=== PATIENT | female | born 1955 | race Hispanic/Latino ===

== ENCOUNTER 2020-02-06 10:39 | Observation (INO) | payer MEDICARE ==
--- NOTE | 2020-02-02 09:16 | Anesthesia Consultation ---
Anesthesia Consult and Med Hx Date of service: 02/06/20 - Airway Anesthetic Teeth Evaluation: Dentures (upper and lower) ROM Head & Neck: Adequate Mental/Hyoid Distance: Adequate Mallampati Class: Class III Intubation Access Assessment: Possibly Difficult (small mouth opening) - Pulmonary Exam CTA: Yes - Cardiac Exam Cardiac Exam: RRR - Pre-Operative Health Status ASA Pre-Surgery Classification: ASA3 Proposed Anesthetic Plan: General - Pulmonary Hx Smoking: Yes (1 PPD) Hx Respiratory Symptoms: No COPD: Yes (albuterol prn; no prior hospitalizations) Home Oxygen Therapy: No Hx Sleep Apnea: No (RIO PRE SCREEN LOW RISK) - Cardiovascular System Hx Hypertension: Yes Hx Heart Attack/AMI: No Hx Percutaneous Transluminal Coronary Angioplasty (PTCA): No Hx Cardia Arrhythmia: No - Central Nervous System CVA: No Hx Back Pain: Yes (LOWER AND LT HIP PAIN) Hx Psychiatric Problems: No - Gastrointestinal Hx Gastroesophageal Reflux Disease: Yes (occasional) - Endocrine Hx Renal Disease: No (renal stones) Hx Liver Disease: No Hx Non-Insulin Dependent Diabetes: Yes Hx Thyroid Disease: No - Hematic Hx Anemia: Yes - Other Systems Hx Obesity: No - Additional Comments Anesthesia Medical History Comments: Hx high spinal with neuraxial anesthetic (unsure what surgical procedure). No other anesthetic complications. Scheduled for nephrostomy tube placement 02/03/20 at [facility].
[2020-02-02 09:18] LABS: Hematocrit 49.1 % (30.3-42.9); Hemoglobin 15.8 gm/dl (10.1-14.3); Mean Corpuscular HGB Conc 32 % (30-34); Mean Corpuscular Volume 82 fl (79-97); Platelet Count 195 K/mm3 (140-440); Red Blood Count 5.99 M/mm3 (3.65-5.03); Red Cell Distribution Width 14.4 % (13.2-15.2)
[2020-02-02 09:37] LABS: Alanine Aminotransferase 12 units/L (7-56); Albumin 3.9 g/dL (3.9-5); BUN/Creatinine Ratio 19; Blood Urea Nitrogen 15 mg/dL (7-17); Calcium 9.2 mg/dL (8.4-10.2); Hemolysis Index 12
--- NOTE | 2020-02-06 09:13 | Anesthesia Day of Surgery ---
Anesthesia Day of Surgery - Day of Surgery Patient Examined: Yes Patient H&P Reviewed: Yes Patient is NPO: Yes
[~2020-02-06 10:39] MED LIST: ACETAMINOPHEN 500 MG TAB PO NR; GABAPENTIN 300 MG CAP PO NR; HYDROmorphone 1 MG/1 ML INJ IV PRN; LACTATED RINGERS 1,000 ML IV SCH; MAGNESIUM OXIDE 400 MG TAB PO SCH; MIDAZOLAM 2 MG/2 ML INJ IV NR; SODIUM CHLORIDE 0.9% 500 ML 500 ML IV NR; ceFAZolin/STERILE WATER 2 GM/20 ML SYRINGE IV NR
[2020-02-06] MEDS ORDERED: dexAMETHasone 20 MG/5 ML VIAL ONE (10:40)
[2020-02-06] MEDS ORDERED: ONDANSETRON 4 MG/2 ML INJ ONE (10:40)
[2020-02-06] MEDS ORDERED: HYDROmorphone 1 MG/1 ML INJ ONE ×2 (10:40→11:54)
[2020-02-06] MEDS ORDERED: LIDOCAINE MPF (2%) 20 MG/1 ML VIAL 5 ML ONE (10:40)
[2020-02-06] MEDS ORDERED: propofoL 200 MG/20 ML VIAL IV ONE (10:40)
[2020-02-06] MEDS ORDERED: ROCURONIUM 50 MG/5 ML INJ IV ONE (10:40)
[2020-02-06] MEDS ORDERED: MINERAL OIL Light (Sterile) 10 ML VIAL TP ONE ×3 (10:49→13:08)
[2020-02-06] MEDS ORDERED: NEOSTIGMINE 10MG/10 ML INJ MDV ONE (11:00)
[2020-02-06] MEDS ORDERED: GLYCOPYRROLATE 0.4 MG/2 ML INJ ONE (11:00)
[2020-02-06] MEDS ORDERED: FUROSEMIDE 40 MG/4 ML INJ ONE (12:41)
[2020-02-06] MEDS ORDERED: SODIUM CHLORIDE 0.9% IRRIG SOLN 3000 ML IR ONE (13:10)
[2020-02-06] MEDS ORDERED: oxyCODONE /ACETAMINOPHEN 5-325MG TAB PO PRN (14:50)
[2020-02-06] MEDS ORDERED: ACETAMINOPHEN 325 MG TAB PO PRN (14:50)
[2020-02-06] MEDS ORDERED: NALOXONE 0.4 MG/1 ML INJ IV PRN (14:50)
[2020-02-06] MEDS ORDERED: ONDANSETRON 4 MG/2 ML INJ IV PRN (14:50)
--- NOTE | 2020-02-06 14:50 | Post Operative Note ---
Date of procedure: 02/06/20 Pre-op diagnosis: renal stones Post-op diagnosis: same Findings: large stones Procedure: left perc nephrolithotomy Anesthesia: GETA Surgeon: JAMEL MANZANARES Estimated blood loss: 50-100ml Pathology: list (stones to pt) Specimen disposition: to lab Condition: stable Disposition: PACU
--- NOTE | 2020-02-06 15:17 | Operative Report ---
PREOPERATIVE DIAGNOSIS: Huge stones in her left kidney with ureteropelvic junction obstruction from a stone. POSTOPERATIVE DIAGNOSIS: Huge stones in her left kidney with ureteropelvic junction obstruction from a stone. PROCEDURE: Left percutaneous nephrolithotomy. SURGEON: Dr. Toure. ANESTHESIA: General. FINDINGS: This is a woman with intermittent severe pain. She has large stone burden in left kidney. A nephroureteral stent was placed on Thursday. She now presents for treatment. All risks and implications discussed. DESCRIPTION OF PROCEDURE: The patient was brought to the operating room and placed on the operating table. Following the induction of anesthesia, placed in the prone position, prepped and draped in usual sterile fashion. Nephroureteral stent was disengaged and a rigid wire coiled in the bladder. This was backed out and using the Amplatz device, a snake was placed and the safety wire was placed and secured with a silk. At this point, we replaced the snake and dilated to approximately 24. We saw two large stones, which were the nonobstructing one; lower pole and mid pole and a UPJ stone. We used the balloon and then placed the sheath. We found out that there were no other sheaths to be used because the dilators came without the sheaths. So, we used the balloon and the sheath did go over the balloon without difficulty. There were a large number of clots in the renal pelvis, which were evacuated out and we saw the UPJ stone, which was easily extracted and a second stone easily extracted. The lower pole stone was difficult to access, but the mid stone was seen, was quite large and we were able to bring it at the level of the sheath. We started lasering it. It was very, very hard stone, did not break easily, so we tried to get the LithoClast. While waiting for the LithoClast, we tried to break it with the laser even while it was in the sheath. The LithoClast did not function properly. We could not use the LithoClast now. At this point, we went back to the laser and eventually cracked the stone in two. While we were waiting, there was some bleeding from that bianca I suspect and we just left the sheath intact until we can get visualization. Once we had visualization, we cracked the stone and the fragments; both stones were removed. The larger piece was removed with the sheath in total because it was stuck right at the level of the sheath. We still had the wire, so we were easily able to replace the sheath, but we had to use the same sheath because there were no other sheaths available. At this point, we placed a [place] catheter. There was some extravasation, so we wanted to be sure looking in the wire and went down the UPJ. We placed a double-J with trimming out with the loop from the kidney, so it would not loop anywhere outside the kidney and we also had a safety wire in the kidney, which we used to place the [place] catheter and left that intact; trimmed the wire at the level of the [place] catheter to allow this to heal. The patient tolerated the procedure well. The only time there was bleeding was when we were waiting for the LithoClast. We secured the [place] catheter without inflating the balloon to 2 silks, left the safety wire and left the double-J. She was brought to recovery room with most of her stone removed except for the lower pole one in stable condition. JOB# [id number] MARCE/MARCIAL
[2020-02-06 15:28] LABS: Hematocrit 47.5 % (30.3-42.9); Hemoglobin 15.9 gm/dl (10.1-14.3); Mean Corpuscular HGB Conc 33 % (30-34); Mean Corpuscular Volume 81 fl (79-97); Platelet Count 200 K/mm3 (140-440); Red Cell Distribution Width 14.5 % (13.2-15.2)
[2020-02-06 15:37] LABS: Calcium 8.8 mg/dL (8.4-10.2)
--- NOTE | 2020-02-06 15:46 | Fluoroscopy Report ---
INTRAOPERATIVE FLUOROSCOPY: STENT PLACEMENT INDICATION: LT KIDNEY STONE. TECHNIQUE: Intraoperative spot images were obtained during the procedure. FINDINGS: These images show balloon dilatation of the left renal collecting system with interval placement of l eft ureteral stent from a proximal approach. Please see procedure note for details. No unexpected fin dings. Fluoroscopy Time: 2 minutes, 7 seconds. Fluoroscopy Images: 12. Signer Name: Robson Ramos MD Signed: 02/06/2020 3:42 PM Workstation Name: [id number]
--- NOTE | 2020-02-06 16:00 | Post Anesthesia Evaluation ---
- Post Anesthesia Evaluation Patient Participated: Yes Airway Patent: Yes Stable Respiratory Function: Yes Nausea/Vomiting: No Temp > 96.8F: Yes Pain Manageable: Yes Adequeate Hydration: Yes Anesthesia Complications: No
[2020-02-06] MEDS: D5W/0.45% NACL/KCL 20 MEQ 20 MEQ/1,000 ML BAG IV SCH (18:14)
[2020-02-06] MEDS: ceFAZolin/NS 1 GM/50 ML 1 GM/50 ML BAG IV SCH (18:36)
[2020-02-06] MEDS: MORPHINE 2 MG/1 ML INJ IV PRN (20:38)
[2020-02-06] MEDS: DOCUSATE SODIUM 100 MG CAP PO SCH (21:38)
[2020-02-06] MEDS ORDERED: ZOLPIDEM 5 MG TAB PO PRN (22:00)
--- NOTE | 2020-02-06 22:27 | Consultation ---
History of Present Illness - Reason for Consult Consult date: 02/06/20 Medical management Requesting physician: JAMEL MANZANARES - History of Present Illness Patient had left percutaneous nephrolithotomy today. Postop patient is doing well. No complications. No shortness of breath. No fever. Past History Past Medical History: diabetes, hypertension Past Surgical History: Other (Left percutaneous nephrolithotomy for renal stones.) Medications and Allergies Allergies Allergy/AdvReac Type Severity Reaction Status Date / Time tetracycline AdvReac Severe Swelling Verified 01/30/20 15:21 aspirin AdvReac Intermediate Unknown Verified 01/30/20 15:21 meperidine [From Demerol] AdvReac Intermediate Unknown Verified 01/30/20 15:21 CONTRAST DYE AdvReac Severe Shortness Uncoded 01/30/20 15:21 of Breath Home Medications Medication Instructions Recorded Confirmed Last Taken Type Anoro Ellipta 62.5-25 Mcg INH 7.5 mg INHALATION DAILY 01/30/20 02/06/20 02/05/20 20:00 History Calcium Citrate/Vitamin D3 1 tab PO PRN 01/30/20 02/06/20 01/30/20 09:00 History Meloxicam [Mobic] 7.5 mg PO DAILY 01/30/20 02/06/20 01/30/20 09:00 History amLODIPine 5 mg PO DAILY 01/30/20 02/06/20 02/05/20 20:00 History lisinopriL [Zestril TAB] 40 mg PO DAILY 01/30/20 02/06/20 02/05/20 20:00 History metFORMIN 500 mg PO DAILY 01/30/20 02/06/20 02/05/20 20:00 History Active Meds: Active Medications Acetaminophen (Tylenol) 650 mg PO Q4H PRN PRN Reason: Pain MILD(1-3)/Fever >100.5/GUZMÁN Docusate Sodium (Colace) 100 mg PO BID SHAUNNA Last Admin: 02/06/20 21:38 Dose: 100 mg Documented by: Gabapentin (Gabapentin) 300 mg PO PREOP NR Stop: 02/06/20 23:00 Last Admin: 02/06/20 09:00 Dose: 300 mg Documented by: Lactated Ringer's (Lactated Ringers) 1,000 mls @ 100 mls/hr IV DIRECT SHAUNNA Stop: 02/06/20 23:59 Last Admin: 02/06/20 09:00 Dose: 100 mls/hr Documented by: Sodium Chloride (Nacl 0.9% 500 Ml) 500 mls @ 0 mls/hr IV ONCE NR Stop: 02/07/20 07:58 Cefazolin Sodium (Ancef/Ns 1 Gm/50 Ml) 1 gm in 50 mls @ 100 mls/hr IV Q8H SHAUNNA; Protocol Stop: 02/07/20 16:29 Last Admin: 02/06/20 18:36 Dose: 100 mls/hr Documented by: Potassium Chloride/Dextrose/Sod Cl (D5w/0.45% Nacl/Kcl 20 Meq) 20 meq in 1,000 mls @ 125 mls/hr IV DIRECT SHAUNNA Last Admin: 02/06/20 18:14 Dose: 125 mls/hr Documented by: Magnesium Oxide (Mag-Ox) 400 mg PO PREOP SHAUNNA Stop: 02/06/20 23:00 Last Admin: 02/06/20 09:00 Dose: 400 mg Documented by: Midazolam HCl (Versed) 2 mg IV PREOP NR Stop: 02/06/20 23:00 Morphine Sulfate (Morphine) 2 mg IV Q4H PRN PRN Reason: Pain, Moderate (4-6) Last Admin: 02/06/20 20:38 Dose: 2 mg Documented by: Naloxone HCl (Naloxone) 0.1 mg IV Q2MIN PRN PRN Reason: Res Rate </= 8 or 02 SAT < 92% Ondansetron HCl (Zofran) 4 mg IV Q8H PRN PRN Reason: Nausea And Vomiting Oxycodone/Acetaminophen (Percocet 5/325) 2 tab PO Q6H PRN PRN Reason: Pain, Moderate (4-6) Zolpidem Tartrate (Ambien) 5 mg PO QHS PRN PRN Reason: Sleep Review of Systems All systems: negative Exam - Constitutional Vitals: Temp Pulse Resp BP Pulse Ox 98.8 F 88 18 129/49 96 02/06/20 19:32 02/06/20 19:32 02/06/20 19:32 02/06/20 19:32 02/06/20 19:32 General appearance: Present: no acute distress, well-nourished - EENT Eyes: Present: PERRL ENT: hearing intact, clear oral mucosa - Neck Neck: Present: supple, normal ROM - Respiratory Respiratory effort: normal Respiratory: bilateral: CTA - Cardiovascular Rhythm: regular Heart Sounds: Present: S1 & S2. Absent: rub, click - Extremities Extremities: pulses symmetrical, No edema Peripheral Pulses: within normal limits - Abdominal General gastrointestinal: Present: soft, non-tender, non-distended, normal bowel sounds Female genitourinary: Present: normal - Integumentary Integumentary: Present: clear, warm, dry - Musculoskeletal Musculoskeletal: gait normal, strength equal bilaterally - Psychiatric Psychiatric: appropriate mood/affect, intact judgment & insight - Neurologic Neurologic: CNII-XII intact, moves all extremities Results - Labs CBC & Chem 7: 02/07/20 05:41 02/07/20 05:41 Labs: Abnormal lab results 02/06/20 02/06/20 02/06/20 Range/Units 08:35 09:08 14:52 RBC (3.65-5.03) M/mm3 Hgb (10.1-14.3) gm/dl Hct (30.3-42.9) % MCH (28-32) pg Glucose 179 H (65-100) mg/dL POC Glucose 145 H (70-105) Crossmatch See Detail 02/06/20 Range/Units 15:12 RBC 5.90 H (3.65-5.03) M/mm3 Hgb 15.9 H (10.1-14.3) gm/dl Hct 47.5 H (30.3-42.9) % MCH 27 L (28-32) pg Glucose (65-100) mg/dL POC Glucose (70-105) Crossmatch Assessment and Plan - Patient Problems (1) H/O nephrolithotomy with removal of calculi Current Visit: Yes Status: Acute Plan to address problem: Patient had left percutaneous nephrolithotomy for removal of stones Postop patient did well (2) Hypertension Current Visit: Yes Status: Chronic Qualifiers: Hypertension type: essential hypertension Qualified Code(s): I10 - Esse ntial (primary) hypertension Plan to address problem: Continue antihypertensives (3) T2DM (type 2 diabetes mellitus) Current Visit: Yes Status: Chronic Qualifiers: Diabetes mellitus senior care insulin use: unspecified senior care insulin use status Plan to address problem: Continue metformin and coverage (4) COPD (chronic obstructive pulmonary disease) Current Visit: Yes Status: Chronic Qualifiers: COPD type: unspecified COPD Qualified Code(s): J44.9 - Chronic obstructive pulmonary disease, unspecified Plan to address problem: Continue Anoro inhaler (5) DVT prophylaxis Current Visit: Yes Status: Acute Plan to address problem: Patient on SCDs and GI prophylaxis
[2020-02-06] MEDS ORDERED: CALCIUM CITRATE PO SCH (22:30)
[2020-02-06] MEDS ORDERED: VITAMIN D3 PO SCH (22:30)
[2020-02-06] MEDS ORDERED: metFORMIN 500 MG TAB PO SCH (23:30)
[2020-02-07] MEDS: ceFAZolin/NS 1 GM/50 ML 1 GM/50 ML BAG IV SCH ×2 (00:21→10:17)
[2020-02-07] MEDS: MORPHINE 2 MG/1 ML INJ IV PRN ×2 (00:22→05:24)
[2020-02-07] MEDS: D5W/0.45% NACL/KCL 20 MEQ 20 MEQ/1,000 ML BAG IV SCH (02:54)
[2020-02-07 06:31] LABS: Blood Urea Nitrogen 10 mg/dL (7-17); Calcium 8.5 mg/dL (8.4-10.2); Hemolysis Index 6
[2020-02-07 06:36] LABS: Basophils # (Auto) 0.1 K/mm3 (0.0-0.1); Basophils % (Auto) 0.9 % (0.0-1.8); Eosinophils # (Auto) 0.1 K/mm3 (0.0-0.4); Eosinophils % (Auto) 1.2 % (0.0-4.3); Hematocrit 44.4 % (30.3-42.9); Hemoglobin 14.4 gm/dl (10.1-14.3); Lymphocytes # (Auto) 1.3 K/mm3 (1.2-5.4); Lymphocytes % (Auto) 18.7 % (13.4-35.0); Mean Corpuscular HGB Conc 32 % (30-34); Mean Corpuscular Volume 81 fl (79-97); Monocytes # (Auto) 0.6 K/mm3 (0.0-0.8); Monocytes % (Auto) 8.9 % (0.0-7.3); Platelet Count 190 K/mm3 (140-440); Red Blood Count 5.46 M/mm3 (3.65-5.03); Red Cell Distribution Width 14.4 % (13.2-15.2)
[2020-02-07 06:50] LABS: BUN/Creatinine Ratio 14
[2020-02-07] MEDS ORDERED: INSULIN LISPRO 100 UNIT/ML VIAL 3 mL SUB-Q SCH (07:30)
--- NOTE | 2020-02-07 09:50 | Progress Note ---
Assessment and Plan min discomfort around perc tube excellenrt drainage wire out Subjective Date of service: 02/07/20 Principal diagnosis: stones Objective - Constitutional Vitals: Vital Signs - 12hr 02/06/20 02/07/20 02/07/20 22:48 04:37 07:03 Temperature 98.9 F 99.7 F H 99.4 F Pulse Rate 79 86 90 Respiratory 18 18 20 Rate Blood Pressure 157/66 147/53 154/64 O2 Sat by Pulse 97 93 97 Oximetry General appearance: Present: no acute distress - Neck Neck: supple - Respiratory Respiratory effort: normal Extremities: no ischemia - Gastrointestinal General gastrointestinal: Present: soft, non-tender - Labs CBC & Chem 7: 02/07/20 05:41 02/07/20 05:41 Labs: Abnormal lab results 02/06/20 02/06/20 02/06/20 Range/Units 08:35 14:52 15:12 RBC 5.90 H (3.65-5.03) M/mm3 Hgb 15.9 H (10.1-14.3) gm/dl Hct 47.5 H (30.3-42.9) % MCH 27 L (28-32) pg Haralson % (Auto) (0.0-7.3) % Seg Neutrophils % (40.0-70.0) % Glucose 179 H (65-100) mg/dL POC Glucose (70-105) Crossmatch See Detail 02/06/20 02/07/20 02/07/20 Range/Units 23:01 05:41 05:41 RBC 5.46 H (3.65-5.03) M/mm3 Hgb 14.4 H (10.1-14.3) gm/dl Hct 44.4 H (30.3-42.9) % MCH 26 L (28-32) pg Haralson % (Auto) 8.9 H (0.0-7.3) % Seg Neutrophils % 70.3 H (40.0-70.0) % Glucose 198 H (65-100) mg/dL POC Glucose 239 H (70-105) Crossmatch 02/07/20 Range/Units 07:19 RBC (3.65-5.03) M/mm3 Hgb (10.1-14.3) gm/dl Hct (30.3-42.9) % MCH (28-32) pg Har[place]on % (Auto) (0.0-7.3) % Seg Neutrophils % (40.0-70.0) % Glucose (65-100) mg/dL POC Glucose 206 H (70-105) Crossmatch Medications & Allergies - Medications Allergies/Adverse Reactions: Allergies tetracycline Adverse Reaction (Severe, Verified 01/30/20 15:21) Swelling SWELLING AND MOUTH TO BREAK OUT aspirin Adverse Reaction (Intermediate, Verified 01/30/20 15:21) Unknown CAUSES UPSET STOMACH meperidine [From Demerol] Adverse Reaction (Intermediate, Verified 01/30/20 15:21) Unknown CONTRAST DYE Adverse Reaction (Severe, Uncoded 01/30/20 15:21) Shortness of Breath BETADINE ON SKIN IS OK- STATED BY PATIENT Home Medications: Home Medications Medication Instructions Recorded Confirmed Last Taken Type Anoro Ellipta 62.5-25 Mcg INH 7.5 mg INHALATION DAILY 01/30/20 02/06/20 02/05/20 20:00 History Calcium Citrate/Vitamin D3 1 tab PO PRN 01/30/20 02/06/20 01/30/20 09:00 History Meloxicam [Mobic] 7.5 mg PO DAILY 01/30/20 02/06/20 01/30/20 09:00 History amLODIPine 5 mg PO DAILY 01/30/20 02/06/20 02/05/20 20:00 History lisinopriL [Zestril TAB] 40 mg PO DAILY 01/30/20 02/06/20 02/05/20 20:00 History metFORMIN 500 mg PO DAILY 01/30/20 02/06/20 02/05/20 20:00 History Active Medications: Generic Name Dose Route Start Last Admin Trade Name Freq PRN Reason Stop Dose Admin Acetaminophen 650 mg 02/06/20 14:50 Tylenol PO Q4H PRN Pain MILD(1-3)/Fever >100.5/GUZMÁN Amlodipine Besylate 5 mg 02/07/20 10:00 Amlodipine PO DAILY [facility] Calcium Citrate 1 each 02/07/20 10:00 Citracal D 315mg-250 Units PO QDAY SHAUNNA Docusate Sodium 100 mg 02/06/20 22:00 02/06/20 21:38 Colace PO 100 mg BID SHAUNNA Administration Cefazolin Sodium 1 gm in 50 mls @ 100 mls/hr 02/06/20 16:00 02/07/20 00:21 Ancef/Ns 1 Gm/50 Ml IV 02/07/20 16:29 100 mls/hr Q8H SHAUNNA Administration Protocol Potassium Chloride/Dextrose/Sod Cl 20 meq in 1,000 mls @ 125 mls/hr 02/06/20 15:00 02/07/20 02:54 D5w/0.45% Nacl/Kcl 20 Meq IV 125 mls/hr DIRECT SHAUNNA Administration Insulin Human Lispro 0 unit 02/07/20 07:30 Humalog SUB-Q ACHS [facility] Protocol Lisinopril 40 mg 02/07/20 10:00 Zestril PO DAILY [facility] Meloxicam 7.5 mg 02/07/20 10:00 Mobic PO DAILY [facility] Metformin HCl 500 mg 02/06/20 23:30 02/06/20 23:28 Glucophage PO 500 mg QDAY@1700 SHAUNNA Administration Miscellaneous Medication 7.5 mg 02/07/20 10:00 Anoro Ellipta 62.5-25 Mcg Inh INHALATION DAILY [facility] Morphine Sulfate 2 mg 02/06/20 14:50 02/07/20 05:24 Morphine IV 2 mg Q4H PRN Administration Pain, Moderate (4-6) Naloxone HCl 0.1 mg 02/06/20 14:50 Naloxone IV Q2MIN PRN Res Rate </= 8 or 02 SAT < 92% Ondansetron HCl 4 mg 02/06/20 14:50 Zofran IV Q8H PRN Nausea And Vomiting Oxycodone/Acetaminophen 2 tab 02/06/20 14:50 Percocet 5/325 PO Q6H PRN Pain, Moderate (4-6) Zolpidem Tartrate 5 mg 02/06/20 22:00 Ambien PO QHS PRN Sleep
--- NOTE | 2020-02-07 09:52 | Discharge Summary ---
Short Stay Discharge Plan Activity: other (no lifting or straining ) Weight Bearing Status: Partial Weight Bearing Diet: low fat, low cholesterol, low salt Wound: keep clean and dry Special Instructions: other (perc tube care ) Durable Medical Equipment Needed Upon Discharge: other (left perc tube) Follow up with: FREDY COLEMAN MD [Primary Care Provider] - 7 Days JAMEL MANZANARES MD [Staff Physician] - 7 Days
[2020-02-07] MEDS ORDERED: CALCIUM CITRATE/VITAMIN D3 315 MG/250 UNITS TAB PO SCH (10:00)
[2020-02-07] MEDS ORDERED: ANORO ELLIPTA INHALATION SCH (10:00)
[2020-02-07] MEDS ORDERED: amLODIPine 5 MG TAB PO SCH (10:00)
[2020-02-07] MEDS ORDERED: LISINOPRIL 40 MG TAB PO SCH (10:00)
[2020-02-07] MEDS ORDERED: NON-FORMULARY EACH (Metformin 500 MG) PO SCH (10:00)
[2020-02-07] MEDS ORDERED: MELOXICAM 7.5 MG TAB PO SCH (10:00)
[2020-02-07] MEDS: DOCUSATE SODIUM 100 MG CAP PO SCH (10:18)
[2020-02-07 12:10] VITALS: BP 135/56
--- NOTE | 2020-02-07 20:59 | Progress Note ---
Hospitalist Physical - Constitutional Vitals: Temp Pulse Resp BP Pulse Ox 99.5 F 92 H 20 135/56 97 02/07/20 11:02 02/07/20 11:02 02/07/20 11:02 02/07/20 11:02 02/07/20 11:02 General appearance: Present: no acute distress Results - Labs CBC & Chem 7: 02/07/20 05:41 02/07/20 05:41 Labs: Laboratory Last Values WBC 7.1 K/mm3 (4.5-11.0) 02/07/20 05:41 RBC 5.46 M/mm3 (3.65-5.03) H 02/07/20 05:41 Hgb 14.4 gm/dl (10.1-14.3) H 02/07/20 05:41 Hct 44.4 % (30.3-42.9) H 02/07/20 05:41 MCV 81 fl (79-97) 02/07/20 05:41 MCH 26 pg (28-32) L 02/07/20 05:41 MCHC 32 % (30-34) 02/07/20 05:41 RDW 14.4 % (13.2-15.2) 02/07/20 05:41 Plt Count 190 K/mm3 (140-440) 02/07/20 05:41 Lymph % (Auto) 18.7 % (13.4-35.0) 02/07/20 05:41 Colbert % (Auto) 8.9 % (0.0-7.3) H 02/07/20 05:41 Eos % (Auto) 1.2 % (0.0-4.3) 02/07/20 05:41 Baso % (Auto) 0.9 % (0.0-1.8) 02/07/20 05:41 Lymph # 1.3 K/mm3 (1.2-5.4) 02/07/20 05:41 Colbert # 0.6 K/mm3 (0.0-0.8) 02/07/20 05:41 Eos # 0.1 K/mm3 (0.0-0.4) 02/07/20 05:41 Baso # 0.1 K/mm3 (0.0-0.1) 02/07/20 05:41 Seg Neutrophils % 70.3 % (40.0-70.0) H 02/07/20 05:41 Seg Neutrophils # 5.0 K/mm3 (1.8-7.7) 02/07/20 05:41 Sodium 138 mmol/L (137-145) 02/07/20 05:41 Potassium 4.5 mmol/L (3.6-5.0) 02/07/20 05:41 Chloride 101.3 mmol/L (98-107) 02/07/20 05:41 Carbon Dioxide 26 mmol/L (22-30) 02/07/20 05:41 Anion Gap 15 mmol/L 02/07/20 05:41 BUN 10 mg/dL (7-17) 02/07/20 05:41 Creatinine 0.7 mg/dL (0.6-1.2) 02/07/20 05:41 Estimated GFR > 60 ml/min 02/07/20 05:41 BUN/Creatinine Ratio 14 % 02/07/20 05:41 Glucose 198 mg/dL (65-100) H 02/07/20 05:41 POC Glucose 173 (70-105) H 02/07/20 11:25 Calcium 8.5 mg/dL (8.4-10.2) 02/07/20 05:41 Total Bilirubin 0.30 mg/dL (0.1-1.2) 02/02/20 09:01 AST 12 units/L (5-40) 02/02/20 09:01 ALT 12 units/L (7-56) 02/02/20 09:01 Alkaline Phosphatase 102 units/L (35-129) 02/02/20 09:01 Total Protein 7.0 g/dL (6.3-8.2) 02/02/20 09:01 Albumin 3.9 g/dL (3.9-5) 02/02/20 09:01 Albumin/Globulin Ratio 1.3 % 02/02/20 09:01 Coronavirus (PCR) Negative (Negative) 02/02/20 08:30 Blood Type A POSITIVE 02/06/20 08:35 Antibody Screen Negative 02/06/20 08:35 Crossmatch See Detail 02/06/20 08:35 Sky/IV: Voiding Method Toilet IV Catheter Type [Right INT / Saline Lock Forearm]
== END 2020-02-07 17:21 | disposition home or self-care (01) ==
LOC: OR 10:39 → 3B-SURG 14:50
PROVIDERS: ADMIT Urology; ATTEND Urology
DX: Z03.818 Encounter for observation for suspected exposure to other biological agents ruled out (principal); N20.0 Calculus of kidney; I10 Essential (primary) hypertension; E11.9 Type 2 diabetes mellitus without complications; J44.9 Chronic obstructive pulmonary disease, unspecified; Z79.84 Long term (current) use of oral hypoglycemic drugs; Z79.899 Other long term (current) drug therapy; Z88.1 Allergy status to other antibiotic agents; Z88.6 Allergy status to analgesic agent; Z88.5 Allergy status to narcotic agent; Z91.041 Radiographic dye allergy status
CPT/HCPCS: 36415; 50081; 50431; 74485; 80048; 80053; 82962; 85025; 85027; 86850; 86900; 86901; 86920; 93005; 96361; 96365; 96366; 96375; 96376; A4217; C1726; C1769; C2617; G0378; J0690; J1100; J1170; J1940; J2270; J2405; J2704; J2710; J7120; Q9967; U0003